=== PATIENT | male | born 1990 | race Caucasian/White ===

== ENCOUNTER 2020-09-09 11:19 | Emergency (ER) | payer OTHER, SELFPAY ==
[2020-09-09 11:30] VITALS: BP 129/87; PULSE 76; RESP 14; TEMP 36.7; O2SAT 99
[2020-09-09 12:03] LABS: COVID19 -Nasal RAPID Negative (Negative)
== END 2020-09-09 12:45 | disposition left against medical advice (07) ==
PROVIDERS: Emergency Provider Emergency Medicine
DX: Z20.822 Contact with and (suspected) exposure to COVID-19 (principal)
CPT/HCPCS: 87635; 99281; C9803